=== PATIENT | female | born 1955 | race Caucasian/White ===

== ENCOUNTER 2020-05-26 09:20 | Emergency (ER) | payer MEDICARE, SELFPAY ==
[2020-05-26 10:15] VITALS: BP 149/69; PULSE 82; RESP 16; TEMP 36; O2SAT 100
--- NOTE | 2020-05-26 10:31 | ED.GENADULT ---
HPI - General Adult General Chief complaint: Skin/Abscess/Foreign Body Stated complaint: Rash Time Seen by Provider: 05/26/20 10:31 Source: patient and RN notes reviewed Mode of arrival: ambulatory Limitations: no limitations History of Present Illness HPI narrative: 64-year-old female presents with complaints of red, raised, itching, burning, rash to upper extremities, neck, and face for the past 3 days. Janeth reports working in the yard on 05/23/20 believes she came in contact with ants and poison juana, symptoms increasing daily. Hydrocortisone cream without relief. Denies new detergent, personal hygiene products, or laundry detergent. No new foods or medications. No swelling, bleeding, or drainage. Denies fever or chills, headaches, weakness, fatigue, malagia, facial swelling, or tongue swelling. Denies chest pain or dyspnea. Tolerating po intake well. LMP postmenopause. The patient reports she have not been diagnosed with COVID-19. The patient reports she received second COVID-19 vaccine on 05/14/2020. The patient reports she is not waiting for the results of a COVID-19 lab test. The patient reports she do not have a new or worsening cough. The patient reports she do not have any rhinorrhea, congestion, sore throat, loss of taste or smell, nausea, vomiting, abdominal pain, and diarrhea. Denies recent traveling. Denies concerns for COVID-19 or exposures been home with limited outdoor exposure except for essential household needs and return home. At this time, patient is not suspected of having COVID-19. Some parts of this dictation were generated by voice recognition software and may contain typographical and/or grammatical inaccuracies. Related Data Home Medications Medication Instructions Recorded Confirmed atorvastatin 10 mg PO DAILY 05/26/20 05/26/20 hydrochlorothiazide 25 mg PO DAILY 05/26/20 05/26/20 Allergies Allergy/AdvReac Type Severity Reaction Status Date / Time No Known Allergies Allergy Verified 05/26/20 10:11 Review of Systems Review of Systems: Narrative: CONSTITUTIONAL: Denies fever, chills, sweats. EYES: Denies visual changes, redness, discharge. ENT: Denies rhinorrhea, congestion, sore throat, otalgia. CARDIOVASCULAR: Denies chest pain, palpitations, edema. RESPIRATORY: Denies dyspnea, wheezing, cough. GASTROINTESTINAL: Denies abdominal pain, nausea, vomiting, diarrhea. GENITOURINARY: Denies dysuria, hematuria, abnormal discharge. SKIN: Complains of red, burning, and itching rash to upper extremities, neck, and face. Denies drainage. MUSCULOSKELETAL: Denies acute back pain, joint pain, or myalgia. NEUROLOGIC: Denies numbness or focal weakness. PSYCHIATRIC: Denies anxiety or depression. All other systems reviewed are negative, except as documented in HPI. [facility] Past Medical History Medical History (Updated 05/27/20 @ 00:00 by Kobi Barraza) delivery delivered Hypercholesteremia Hypertension Postmenopausal Surgical History Surgical History (Updated 05/26/20 @ 10:45 by RADHA Castillo) H/O section X1 History of ear surgery Bilateral Family History Family History (Updated 05/26/20 @ 10:46 by RADHA Castillo) Father Hypertension Acute myocardial infarction Diabetes mellitus Mother Hypertension Social History Social History (Updated 05/26/20 @ 10:46 by RADHA Castillo) Smoking status: Never smoker Tobacco type: cigarettes Second hand tobacco smoke exposure: No Alcohol intake: current Substance use: never Living arrangements: with family Occupation/Education: retired Gender identity (if verbalized by the patient): Female Comments At time of signature, agree with nurse past medical, surgical, social, and family history. There is no relevant family history pertinent to the presenting complaint. Exam Narrative: Exam Narrative: GENERAL: This is a well-nourished, well-developed
[2020-05-26] MEDS: methylPREDNISolone SOD SUCC 125 MG VIAL IM (10:42)
== END 2020-05-26 11:00 | disposition home or self-care (01) ==
PROVIDERS: Emergency Provider Nurse Practitioner Family
DX: L23.7 Allergic contact dermatitis due to plants, except food (principal); E78.00 Pure hypercholesterolemia, unspecified; I10 Essential (primary) hypertension
CPT/HCPCS: 96372; 99203; G0463; J2930